=== PATIENT | male | born 1960 | race Caucasian/White ===

== ENCOUNTER 2016-10-18 18:34 | Emergency (ER) | payer MEDICARE ==
[2016-10-18 20:15] LABS: HEMOGLOBIN 15.1 gm/dl (14.0-17.5); RED BLOOD COUNT 4.71 M/UL (4.20-5.50); WHITE BLOOD COUNT 15.4 K/UL (4.5-11.0)
[2016-10-18 20:32] LABS: BUN/CREATININE RATIO 32 (0-10)
== END 2016-10-18 23:10 | disposition home or self-care (01) ==
LOC: ER1 18:34
PROVIDERS: Family Medicine
DX: J40 Bronchitis, not specified as acute or chronic (principal); E11.9 Type 2 diabetes mellitus without complications; I10 Essential (primary) hypertension; J44.9 Chronic obstructive pulmonary disease, unspecified; F17.210 Nicotine dependence, cigarettes, uncomplicated; Z79.84 Long term (current) use of oral hypoglycemic drugs; Z79.899 Other long term (current) drug therapy
CPT/HCPCS: 36415; 71020; 80053; 85025; 87040; 87081; 87880; 96360; 96361; 99283; J7030

== ENCOUNTER → 2021-02-25 | Outpatient (CLI) | payer MEDICARE ==
[~2021-02-25] MED LIST: AMBIEN5 MG PO; ATIVAN 1MG TABLE1 MG PO; COMPAZINE10 MG PO; JANUVIA100 MG PO; MORPHINE SULFAT30 M2 PO; ONDANSETRON ODT8 MG PO; ORALONE5 GM TD; OXYCODONE-ACET1 EACH PO; PANTOPRAZOLE SO40 MG PO; SIMVASTATIN10 MG PO; VICTOZA 1818 MG/3 ML SC; ZESTRIL/PRINIVI10 MG PO
[2021-02-25 09:01] LABS: HEMOGLOBIN 13.8 gm/dl (14.0-17.5); RED BLOOD COUNT 4.31 M/UL (4.20-5.50)
[2021-02-25 09:52] LABS: BUN/CREATININE RATIO 15 (0-10)
== END ==
LOC: LAB 06:22
PROVIDERS: Internal Medicine Cardiovascular Disease
DX: I11.9 Hypertensive heart disease without heart failure (principal); I43 Cardiomyopathy in diseases classified elsewhere; R00.0 Tachycardia, unspecified; E11.9 Type 2 diabetes mellitus without complications
CPT/HCPCS: 36415; 80053; 80061; 84439; 84443; 85025; 93306